=== PATIENT | male | born 1965 | race Caucasian/White ===

== ENCOUNTER 2016-08-30 10:51 | Emergency (ER) | payer BC ==
--- NOTE | 2016-08-30 12:28 | ED NURSING NOTES ---
Clinical Report - Nurses [place] [address] [place] [address] 08/30/2016 10:52 Patient: ROSANGELA MG TRIAGE Triage time 11:09. Alert. No acute distress. --11:12 Richard Corey R.N. 11:09 08/30/16. BP: 141/79. HR: 109. RR: 20. O2 saturation: 100%. Temp: 98.6 F. Pain level now 11/25. --11:12 Richard Corey R.N. Chief Complaint: (cloudy urine). --12:44 Richard Corey R.N. Weight: 99.7 kg stated. Height/Length: 74 inches Per Patient. BMI: 28.2. --11:12 Richard Corey R.N. Medications None. --11:11 Rcihard Corey R.N. Allergies NKDA. --11:11 Richard Corey R.N. History Arrived by private vehicle. Historian: patient. Accompanied by family. ( Head ache and back pain since . Cloudy urine. Patient thinks he has UTI). SOCIAL HX: Alcohol use. FALL RISK ASSESSMENT: Fall risk assessment completed. No fall risk identified. NUTRITIONAL RISK ASSESSMENT: The nutritional risk assessment revealed no deficiencies. FUNCTIONAL ASSESSMENT: Functional assessment: no impairments noted. LEARNING NEEDS ASSESSMENT: The learning needs assessment revealed no barriers. SKIN INTEGRITY ASSESSMENT: Skin integrity risk assessment completed. No skin integrity risk identified. --11:12 Richard Corey R.N. PROBLEMS: Flank Pain. --11:12 Richard Corey R.N. Interventions ID band on patient. --11:12 Richard Corey R.N. PHYSICAL ASSESSMENT ( Cloudy appearing urine sent for UA). GENERAL / NEURO / PSYCH: Alert. Oriented X 4. Appears in no acute distress. RESPIRATORY: Respirations not labored. --11:13 Richard Corey R.N. NURSING PROGRESS NOTES Urine collected with return of cloudy urine. Call light placed in reach. Bed placed in lowest position. --11:13 Richard Corey R.N. 12:38 08/30/2016 Bactrim DS (Sulfamethoxazole-TMP DS) PO Tablets 1 tab given. --12:38 Richard Corey R.N. DISPOSITION / DISCHARGE Condition at departure: unchanged. No learning barriers present. Discharge instructions provided and reviewed with the patient. Patient verbalized understanding. Written instructions provided in Occitan. The patient was discharged by the physician. He was discharged home. --12:42 Richard Corey R.N. 12:40 08/30/16. BP: 141/79. HR: 98. RR: 20. O2 saturation: 100%. Temp: 99.8 F. Pain level now 510. --12:42 Richard Corey R.N. Departure time: 12:42. --12:42 Richard Corey R.N. Locked/Released at 08/30/2016 12:46 by Richard Corey R.N.
--- NOTE | 2016-08-30 12:28 | ED ORDER SUMMARY ---
..... Patient: ROSANGELA MG OrderSheet [facility] VisitID: [id number] [address] [place] [address] 51y, M Registration Date/Time: 08/30/2016 ORDER SHEET Weight: 99.7 kg (stated) Allergies: NKDA GENERAL ORDERS: UA-Culture if indicated Urgent (11:20 08/30/2016 Jean Claude Siddiqui) ([facility] 11:21 [facility]) (12:45 GMarshall R.N.) MEDICATION ORDERS: Bactrim DS PO (Tablet 800-160 mg) 1 tab (NOW) (12:25 08/30/2016 Jean Claude Siddiqui) (12:38 GMarshall R.N.) IV FLUIDS: ORDER SHEET NOTES: [Electronically signed by Richard Corey R.N. (12:45 08/30/2016)] [Electronically signed by Brandon Talavera Dr. (16:37 08/30/2016)] [Electronically locked/signed by Richard Corey R.N. (12:45 08/30/2016)]
--- NOTE | 2016-08-30 12:28 | ED NURSING NOTES ---
Clinical Report - Nurses [place] [address] [place] [address] 08/30/2016 10:52 Patient: ROSANGELA MG TRIAGE Triage time 11:09. Alert. No acute distress. --11:12 Richard Corey R.N. 11:09 08/30/16. BP: 141/79. HR: 109. RR: 20. O2 saturation: 100%. Temp: 98.6 F. Pain level now 11/25. --11:12 Richard Corey R.N. Chief Complaint: (cloudy urine). --12:44 Richard Corey R.N. Weight: 99.7 kg stated. Height/Length: 74 inches Per Patient. BMI: 28.2. --11:12 Richard Corey R.N. Medications None. --11:11 Richard Corey R.N. Allergies NKDA. --11:11 Richard Corey R.N. History Arrived by private vehicle. Historian: patient. Accompanied by family. ( Head ache and back pain since . Cloudy urine. Patient thinks he has UTI). SOCIAL HX: Alcohol use. FALL RISK ASSESSMENT: Fall risk assessment completed. No fall risk identified. NUTRITIONAL RISK ASSESSMENT: The nutritional risk assessment revealed no deficiencies. FUNCTIONAL ASSESSMENT: Functional assessment: no impairments noted. LEARNING NEEDS ASSESSMENT: The learning needs assessment revealed no barriers. SKIN INTEGRITY ASSESSMENT: Skin integrity risk assessment completed. No skin integrity risk identified. --11:12 Richard Corey R.N. PROBLEMS: Flank Pain. --11:12 Richard Corey R.N. Interventions ID band on patient. --11:12 Richard Corey R.N. PHYSICAL ASSESSMENT ( Cloudy appearing urine sent for UA). GENERAL / NEURO / PSYCH: Alert. Oriented X 4. Appears in no acute distress. RESPIRATORY: Respirations not labored. --11:13 Richard Corey R.N. NURSING PROGRESS NOTES Urine collected with return of cloudy urine. Call light placed in reach. Bed placed in lowest position. --11:13 Richard Corey R.N. 12:38 08/30/2016 Bactrim DS (Sulfamethoxazole-TMP DS) PO Tablets 1 tab given. --12:38 Richard Corey R.N. DISPOSITION / DISCHARGE Condition at departure: unchanged. No learning barriers present. Discharge instructions provided and reviewed with the patient. Patient verbalized understanding. Written instructions provided in Romanian. The patient was discharged by the physician. He was discharged home. --12:42 Richard Corey R.N. 12:40 08/30/16. BP: 141/79. HR: 98. RR: 20. O2 saturation: 100%. Temp: 99.8 F. Pain level now 510. --12:42 Richard Corey R.N. Departure time: 12:42. --12:42 Richard Corey R.N. Locked/Released at 08/30/2016 12:46 by Richard Corey R.N.
--- NOTE | 2016-08-30 12:28 | ED ORDER SUMMARY ---
..... Patient: ROSANGELA MG OrderSheet [facility] VisitID: [id number] [address] [place] [address] 51y, M Registration Date/Time: 08/30/2016 ORDER SHEET Weight: 99.7 kg (stated) Allergies: NKDA GENERAL ORDERS: UA-Culture if indicated Urgent (11:20 08/30/2016 Jean Claude Siddiqui) ([facility] 11:21 [facility]) (12:45 GMarshall R.N.) MEDICATION ORDERS: Bactrim DS PO (Tablet 800-160 mg) 1 tab (NOW) (12:25 08/30/2016 Jean Claude Siddiqui) (12:38 GMarshall R.N.) IV FLUIDS: ORDER SHEET NOTES: [Electronically signed by Richard Corey R.N. (12:45 08/30/2016)] [Electronically signed by Brandon Talavera Dr. (16:37 08/30/2016)] [Electronically locked/signed by Richard Corey R.N. (12:45 08/30/2016)]
--- NOTE | 2016-08-30 12:28 | ED CLINICAL REPORT ---
Clinical Report - Physicians/Mid Levels Located Within [facility] [address] [place] [address] 08/30/2016 10:52 Patient: ROSANGELA MG Arrived- By private vehicle. Historian- patient. HISTORY OF PRESENT ILLNESS Chief Complaint: URINARY FREQUENCY. This started past few days and is still present. The problem is described as moderate. It was gradual in onset and has been intermittent but is not gone now. No penile discharge, discomfort with urination, genital lesion, testicular pain or flank pain. No Cullen catheter problem, inguinal swelling or problem with the foreskin. The patient has had urinary frequency. The patient has had urgency of urination. Able to void. Not voiding only small amounts. The patient has had no unprotected intercourse or not had an exposure to a sexually transmitted disease. Sexual history is noncontributory. (states that he had darker colored urine as well.). Similar symptoms previously: Once. ( treated with abx several months ago and cleared it out.). Recent medical care: Not recently seen/assessed. REVIEW OF SYSTEMS The patient has had fever. No abdominal pain, vomiting, diarrhea, black stools or bloody stools. No chest pain or joint pain. All systems otherwise negative, except as recorded above. PAST HISTORY See nurses notes. Medications: None. Allergies: NKDA. SOCIAL HISTORY Alcohol use. History of drug use: narcotics. Is a local resident. ADDITIONAL NOTES The nursing notes have been reviewed. PHYSICAL EXAM Vital Signs: 08/30/2016 11:09 BP: 141/79. HR: 109. RR: 20. O2 saturation: 100%. Temp: 98.6 F. Blood pressure normal. Oxygen saturation normal. Appearance: Alert. Oriented X3. No acute distress. ENT: Normal external inspection. Neck: Neck supple. CVS: Heart sounds normal. Respiratory: No respiratory distress. Breath sounds normal. Abdomen: Soft and nontender. Bowel sounds normal. No mass. Back: Normal external inspection. : Normal genitalia. Testes descended. Skin: Skin warm and dry. Normal skin color. No rash. Normal skin turgor. Extremities: Extremities exhibit normal ROM. No lower extremity edema. LABS, X-RAYS, AND EKG Laboratory Tests: UA-Culture if indicated: (NAYELI: 08/30/2016 11:05) ( MsgRcvd 08/30/2016 11:35) Final results Test Result Flag Units (Reference) URINE COLOR YELLOW URINE APPEARANCE TURBID URINE GLUCOSE NEGATIVE (NEGATIVE) URINE BILIRUBIN NEGATIVE (NEGATIVE) URINE KETONE NEGATIVE (NEGATIVE) URINE SPECIFIC GRAVITY 1.010 (1.010-1.030) URINE PH 6.0 (5.0-8.0) URINE PROTEIN TRACE (NEGATIVE) URINE UROBILINOGEN 2.0 EU/dL (0.2-1.0) The urobilinogen reagent area may react with interferingsubstances known to react with Jackie's reagent such asp-aminosalicylic acid and sulfonamides. Atypical colorreactions may be obtained in the presence of highconcentrations of p-aminobenzoic acid. The absence ofurobilinogen cannot be determined with this test. URINE NITRITE NEGATIVE (NEGATIVE) URINE BLOOD 1+ (NEGATIVE) URINE LEUK ESTERASE POSITIVE (NEGATIVE) URINE RBC 5-10 rbc/hpf (0-1) URINE WBC >100 wbc/hpf (0-1) URINE EPITHELIAL CELLS NONE SEEN EPI/hpf (0-5) URINE BACTERIA MODERATE (2+ TO 3+) (NONE SEEN) URINE COMMENT CULTURE INDICATED URINE CULTURES ARE SET-UP BASED ON THE FOLLOWING CRITERIA:POSITIVE NITRITEPOSITIVE LEUKOCYTE ESTERASEGREATER THAN 10 WHITE BLOOD CELLSMODERATE (2+) OR GREATER BACTERIA . PROGRESS AND PROCEDURES Course of Care: The patient is a pleasant 51-year-old male presents retaliation of urinary tract symptoms. Patient has no risk factors for sexually transmitted infections at this time. Patient not having any penile discharge. I discussion with patient in regards to this possibility however symptoms do not improve and follow up with his primary care Dr. Patient recently had treatment with ciprofloxacininterviewing patient's chart. The patient does have a urinary tract infection on today's visit, we will provide the patient with a different antibiotic. Patient is agreeable to treatment plan. Patient appears nontoxic. Vital signs are unremarkable. Workup shows patient have significant urinary tract infection. Because of the patient's gender, patient will be treated as a complex urinary tract infection. Based on the antibiotic resistant pattern here in the area, Bactrim would be the next best option in regards to UTIs in males. Cipro Floxin has been used recently, and therefore would require different antibiotic. Patient does not need to be admitted to the hospital require further emergency department workup/evaluation. Patient is a good outpatient candidate. Patient on repeat examination appears to be nontoxic and in no acute distress. Vital signs remain unremarkable. I discussed with patient workup, diagnosis, home care, follow-up, and return precautions. Ald. The patient expressed understanding of these instructions and was agreeable to them. Disposition: Discharged. Condition: good. CLINICAL IMPRESSION 08/30/2016 11:09 BP: 141/79. HR: 109. RR: 20. O2 saturation: 100%. Temp: 98.6 F. Blood pressure normal. Oxygen saturation normal. Acute urinary tract infection with cystitis and hematuria (acute). INSTRUCTIONS Warnings: GENERAL WARNINGS: Return or contact your physician immediately if your condition worsens or changes unexpectedly, if not improving as expected, or if other problems arise. Specifically return if pain, vomiting, bleeding, breathing difficulty or fever. Your Current Medications: CONTINUE TAKING THE FOLLOWING MEDICATIONS: None*. Prescription Medications: Bactrim DS 800 mg / 160 mg: take 1 tablet orally every 12 hours for 10 days. Substitution is permissible. Follow-up: Return to the emergency department as needed. Follow up with your doctor in three. Reason for referral: recheck today's concerns. Summary of care provided to patient via paper. Screening today revealed the patient's blood pressure to be in the normal range. The patient should follow up with a primary care provider for blood pressure management. Understanding of the discharge instructions verbalized by patient. (Electronically signed by Brandon Talavera Dr. 08/30/2016 16:37)
--- NOTE | 2016-08-30 16:38 | ED DISCHARGE INSTRUCTIONS ---
Patient: ROSANGELA MG General Instructions [facility] VisitID: [id number] [place] [address] 51y, M Registration Date/Time: 08/30/2016 08/30/2016 11:09 BP: 141/79. HR: 109. RR: 20. O2 saturation: 100%. Temp: 98.6 F. Blood pressure normal. Oxygen saturation normal. Acute urinary tract infection with cystitis and hematuria (acute). INSTRUCTIONS Warnings: GENERAL WARNINGS: Return or contact your physician immediately if your condition worsens or changes unexpectedly, if not improving as expected, or if other problems arise. Specifically return if pain, vomiting, bleeding, breathing difficulty or fever. Your Current Medications: CONTINUE TAKING THE FOLLOWING MEDICATIONS: None*. Prescription Medications: Bactrim DS 800 mg / 160 mg: take 1 tablet orally every 12 hours for 10 days. Substitution is permissible. Follow-up: Return to the emergency department as needed. Follow up with your doctor in three. Reason for referral: recheck today's concerns. Summary of care provided to patient via paper. Screening today revealed the patient's blood pressure to be in the normal range. The patient should follow up with a primary care provider for blood pressure management. Understanding of the discharge instructions verbalized by patient. ADDITIONAL INFORMATION Bladder Infection,Male (Adult) A bladder infection ("cystitis" or "UTI") usually causes a constant urge to urinate, and a burning when passing urine. Urine may be cloudy, smelly or dark. There may be also be pain in the lower abdomen. Cystitis in males is not common. It may be caused by a partial blockage in the urinary system that keeps the bladder from emptying completely. This is most often related to an enlarged prostate gland. Home Care: Drink lots of fluids (at least 6-8 glasses a day). This will flush the bacteria out of your bladder. Avoid sexual intercourse until your symptoms are gone. Avoid caffeine, alcohol, and spicy foods. They could irritate the bladder. A bladder infection is treated with antibiotics. You may also be given Pyridium (generic - phenazopyridine) to reduce burning with urination. This will cause urine to become a bright orange color, which can stain clothing. Follow Up with your doctor or this facility if ALL symptoms have not cleared within five days. It is important to keep your follow up appointment to discuss with your doctor the need for further tests of the urinary tract. Get Prompt Medical Attention if any of the following occur: Fever of 100.4F (38C) or higher, or as directed by your healthcare provider No improvement by the third day of treatment Increasing back or abdominal pain Repeated vomiting; unable to keep medicine down Weakness, dizziness or fainting Sulfamethoxazole, Trimethoprim Oral tablet What is this medicine? SULFAMETHOXAZOLE; TRIMETHOPRIM or SMX-TMP (suhl fuh meth OK rochelle zohl; trye METH oh prim) is a combination of a sulfonamide antibiotic and a second antibiotic, trimethoprim. It is used to treat or prevent certain kinds of bacterial infections. It will not work for colds, flu, or other viral infections. How should I use this medicine? Take this medicine by mouth with a full glass of water. Follow the directions on the prescription label. Take your medicine at regular intervals. Do not take it more often than directed. Do not skip doses or stop your medicine early. Talk to your project consultant regarding the use of this medicine in children. Special care may be needed. This medicine has been used in children as young as 2 months of age. What side effects may I notice from receiving this medicine? Side effects that you should report to your doctor or health career counselor as soon as possible: allergic reactions like skin rash or hives, swelling of the face, lips, or tongue breathing problems fever or chills, sore throat irregular heartbeat, chest pain joint or muscle pain pain or difficulty passing urine red pinpoint spots on skin redness, blistering, peeling or loosening of the skin, including inside the mouth unusual bleeding or bruising unusually weak or tired yellowing of the eyes or skin Side effects that usually do not require medical attention (report to your doctor or health career counselor if they continue or are bothersome): diarrhea dizziness headache loss of appetite nausea, vomiting nervousness What may interact with this medicine? Do not take this medicine with any of the following medications: aminobenzoate potassium dofetilide metronidazole This medicine may also interact with the following medications: KATHIE inhibitors like benazepril, enalapril, lisinopril, and ramipril cyclosporine digoxin diuretics indomethacin medicines for diabetes methenamine methotrexate phenytoin potassium supplements pyrimethamine sulfinpyrazone tricyclic antidepressants warfarin What if I miss a dose? If you miss a dose, take it as soon as you can. If it is almost time for your next dose, take only that dose. Do not take double or extra doses. Where should I keep my medicine? Keep out of the reach of children. Store at room temperature between 20 to 25 degrees C (68 to 77 degrees F). Protect from light. Throw away any unused medicine after the expiration date. What should I tell my health care provider before I take this medicine? They need to know if you have any of these conditions: anemia asthma being treated with anticonvulsants if you frequently drink alcohol containing drinks kidney disease liver disease low level of folic acid or labdfly-[id number] dehydrogenase poor nutrition or malabsorption porphyria severe allergies thyroid disorder an unusual or allergic reaction to sulfamethoxazole, trimethoprim, sulfa drugs, other medicines, foods, dyes, or preservatives or trying to get breast-feeding What should I watch for while using this medicine? Tell your doctor or health career counselor if your symptoms do not improve. Drink several glasses of water a day to reduce the risk of kidney problems. Do not treat diarrhea with over the counter products. Contact your doctor if you have diarrhea that lasts more than 2 days or if it is severe and watery. This medicine can make you more sensitive to the sun. Keep out of the sun. If you cannot avoid being in the sun, wear protective clothing and use a sunscreen. Do not use sun lamps or tanning beds/booths. You have been given the following additional information: Bladder Infection, Male (Adult) Sulfamethoxazole, Trimethoprim Oral tablet (Electronically signed by Brandon Talavera Dr. 08/30/2016 16:37)
--- NOTE | 2016-08-30 16:38 | ED MED RECONCILIATION SUMMARY ---
Patient: ROSANGELA MG Medication Reconciliation Report [facility] VisitID: [id number] [address] [place] [address] 51y, M Registration Date/Time: 08/30/2016 Weight: 99.7 kg Height/Length: 74 in. BMI: 28.2 ALLERGIES: NKDA The patient's Home Medications are listed below: NONE. The source(s) of the original Home Medication information: Not obtained. The following Medications were given to the patient in the Emergency Department: Bactrim DS [PO] PO 1 tab, administered: 08/30/2016 12:38:00 PM The following Medications were prescribed to the patient: Bactrim DS 800 mg / 160 mg: take 1 tablet orally every 12 hours for 10 days. Substitution is permissible. -- Brandon Talavera Dr.
--- NOTE | 2016-08-30 16:38 | ED MAR SUMMARY ---
..... Medication Administration Record [facility] [address] [place] [address] Patient: ROSANGELA MG Visit ID: [id number] 51y, M Weight: 99.7 kg Height/Length: 74 in BMI: 28.2 ALLERGIES: NKDA Given 12:38 08/30/2016 Richard Corey R.N. Medication Administered: BACTRIM DS [PO] (SULFAMETHOXAZOLE-TMP DS), Dose: 1 tab Tablets PO. Medication Ordered: Bactrim DS PO (Tablet 800-160 mg) 1 tab (NOW).
--- NOTE | 2016-08-30 16:38 | ED MED RECONCILIATION SUMMARY ---
Patient: ROSANGELA MG Medication Reconciliation Report [facility] VisitID: [id number] [address] [place] [address] 51y, M Registration Date/Time: 08/30/2016 Weight: 99.7 kg Height/Length: 74 in. BMI: 28.2 ALLERGIES: NKDA The patient's Home Medications are listed below: NONE. The source(s) of the original Home Medication information: Not obtained. The following Medications were given to the patient in the Emergency Department: Bactrim DS [PO] PO 1 tab, administered: 08/30/2016 12:38:00 PM The following Medications were prescribed to the patient: Bactrim DS 800 mg / 160 mg: take 1 tablet orally every 12 hours for 10 days. Substitution is permissible. -- Brandon Talavera Dr.
--- NOTE | 2016-08-30 16:38 | ED DISCHARGE INSTRUCTIONS ---
Patient: ROSANGELA MG General Instructions [facility] VisitID: [id number] [place] [address] 51y, M Registration Date/Time: 08/30/2016 08/30/2016 11:09 BP: 141/79. HR: 109. RR: 20. O2 saturation: 100%. Temp: 98.6 F. Blood pressure normal. Oxygen saturation normal. Acute urinary tract infection with cystitis and hematuria (acute). INSTRUCTIONS Warnings: GENERAL WARNINGS: Return or contact your physician immediately if your condition worsens or changes unexpectedly, if not improving as expected, or if other problems arise. Specifically return if pain, vomiting, bleeding, breathing difficulty or fever. Your Current Medications: CONTINUE TAKING THE FOLLOWING MEDICATIONS: None*. Prescription Medications: Bactrim DS 800 mg / 160 mg: take 1 tablet orally every 12 hours for 10 days. Substitution is permissible. Follow-up: Return to the emergency department as needed. Follow up with your doctor in three. Reason for referral: recheck today's concerns. Summary of care provided to patient via paper. Screening today revealed the patient's blood pressure to be in the normal range. The patient should follow up with a primary care provider for blood pressure management. Understanding of the discharge instructions verbalized by patient. ADDITIONAL INFORMATION Bladder Infection,Male (Adult) A bladder infection ("cystitis" or "UTI") usually causes a constant urge to urinate, and a burning when passing urine. Urine may be cloudy, smelly or dark. There may be also be pain in the lower abdomen. Cystitis in males is not common. It may be caused by a partial blockage in the urinary system that keeps the bladder from emptying completely. This is most often related to an enlarged prostate gland. Home Care: Drink lots of fluids (at least 6-8 glasses a day). This will flush the bacteria out of your bladder. Avoid sexual intercourse until your symptoms are gone. Avoid caffeine, alcohol, and spicy foods. They could irritate the bladder. A bladder infection is treated with antibiotics. You may also be given Pyridium (generic - phenazopyridine) to reduce burning with urination. This will cause urine to become a bright orange color, which can stain clothing. Follow Up with your doctor or this facility if ALL symptoms have not cleared within five days. It is important to keep your follow up appointment to discuss with your doctor the need for further tests of the urinary tract. Get Prompt Medical Attention if any of the following occur: Fever of 100.4F (38C) or higher, or as directed by your healthcare provider No improvement by the third day of treatment Increasing back or abdominal pain Repeated vomiting; unable to keep medicine down Weakness, dizziness or fainting Sulfamethoxazole, Trimethoprim Oral tablet What is this medicine? SULFAMETHOXAZOLE; TRIMETHOPRIM or SMX-TMP (suhl fuh meth OK rochelle zohl; trye METH oh prim) is a combination of a sulfonamide antibiotic and a second antibiotic, trimethoprim. It is used to treat or prevent certain kinds of bacterial infections. It will not work for colds, flu, or other viral infections. How should I use this medicine? Take this medicine by mouth with a full glass of water. Follow the directions on the prescription label. Take your medicine at regular intervals. Do not take it more often than directed. Do not skip doses or stop your medicine early. Talk to your vocational rehabilitation counselor regarding the use of this medicine in children. Special care may be needed. This medicine has been used in children as young as 2 months of age. What side effects may I notice from receiving this medicine? Side effects that you should report to your doctor or health social worker palliative care as soon as possible: allergic reactions like skin rash or hives, swelling of the face, lips, or tongue breathing problems fever or chills, sore throat irregular heartbeat, chest pain joint or muscle pain pain or difficulty passing urine red pinpoint spots on skin redness, blistering, peeling or loosening of the skin, including inside the mouth unusual bleeding or bruising unusually weak or tired yellowing of the eyes or skin Side effects that usually do not require medical attention (report to your doctor or health social worker palliative care if they continue or are bothersome): diarrhea dizziness headache loss of appetite nausea, vomiting nervousness What may interact with this medicine? Do not take this medicine with any of the following medications: aminobenzoate potassium dofetilide metronidazole This medicine may also interact with the following medications: KATHIE inhibitors like benazepril, enalapril, lisinopril, and ramipril cyclosporine digoxin diuretics indomethacin medicines for diabetes methenamine methotrexate phenytoin potassium supplements pyrimethamine sulfinpyrazone tricyclic antidepressants warfarin What if I miss a dose? If you miss a dose, take it as soon as you can. If it is almost time for your next dose, take only that dose. Do not take double or extra doses. Where should I keep my medicine? Keep out of the reach of children. Store at room temperature between 20 to 25 degrees C (68 to 77 degrees F). Protect from light. Throw away any unused medicine after the expiration date. What should I tell my health care provider before I take this medicine? They need to know if you have any of these conditions: anemia asthma being treated with anticonvulsants if you frequently drink alcohol containing drinks kidney disease liver disease low level of folic acid or [id number] dehydrogenase poor nutrition or malabsorption porphyria severe allergies thyroid disorder an unusual or allergic reaction to sulfamethoxazole, trimethoprim, sulfa drugs, other medicines, foods, dyes, or preservatives or trying to get breast-feeding What should I watch for while using this medicine? Tell your doctor or health social worker palliative care if your symptoms do not improve. Drink several glasses of water a day to reduce the risk of kidney problems. Do not treat diarrhea with over the counter products. Contact your doctor if you have diarrhea that lasts more than 2 days or if it is severe and watery. This medicine can make you more sensitive to the sun. Keep out of the sun. If you cannot avoid being in the sun, wear protective clothing and use a sunscreen. Do not use sun lamps or tanning beds/booths. You have been given the following additional information: Bladder Infection, Male (Adult) Sulfamethoxazole, Trimethoprim Oral tablet (Electronically signed by Brandon Talavera Dr. 08/30/2016 16:37)
--- NOTE | 2016-08-30 16:38 | ED MAR SUMMARY ---
..... Medication Administration Record [facility] [address] [place] [address] Patient: ROSANGELA MG Visit ID: [id number] 51y, M Weight: 99.7 kg Height/Length: 74 in BMI: 28.2 ALLERGIES: NKDA Given 12:38 08/30/2016 Richard Corey R.N. Medication Administered: BACTRIM DS [PO] (SULFAMETHOXAZOLE-TMP DS), Dose: 1 tab Tablets PO. Medication Ordered: Bactrim DS PO (Tablet 800-160 mg) 1 tab (NOW).
== END 2016-08-30 12:45 | disposition home or self-care (01) ==
LOC: ED SRH 10:51
DX: N30.01 Acute cystitis with hematuria (principal)
CPT/HCPCS: 90004; 90148; 90469